=== PATIENT | male | born 1950 | race Caucasian/White ===

== ENCOUNTER 2022-12-04 23:08 | Emergency (ER) | payer OTHER ==
[~2022-12-04] VITALS: Ht 167.6 cm; Wt 95.0 kg
[2022-12-04 23:17] VITALS: O2SAT 97
[2022-12-04] MEDS ORDERED: KETOROLAC 30MG/ML VIAL IM STA (23:24)
[2022-12-04 23:59] VITALS: BP 129/80
[2022-12-05] MEDS ORDERED: IBUP-2029 MT (03:07)
[2022-12-05] MEDS ORDERED: METH-653 MT (03:07)
[2022-12-05 03:24] VITALS: PULSE 78; RESP 16; TEMP 98.4
== END 2022-12-05 03:26 | disposition home or self-care (01) ==
LOC: ER 23:08
DX: S86.911A Strain of unspecified muscle(s) and tendon(s) at lower leg level, right leg, initial encounter (principal); W01.0XXA Fall on same level from slipping, tripping and stumbling without subsequent striking against object, initial encounter; Y93.66 Activity, soccer; Y92.89 Other specified places as the place of occurrence of the external cause; Y99.8 Other external cause status
CPT/HCPCS: 99284; 73590; 73610; 96372; J1885